=== PATIENT | female | born 1960 | race Caucasian/White ===

== ENCOUNTER 2016-11-16 10:42 | Outpatient (CLI) | payer MEDICARE, BC ==
--- NOTE | 2016-11-16 11:57 | RAD ---
CERVICAL SPINE TWO VIEWS: History: Cervical surgery seven weeks ago. Follow up. FINDINGS/IMPRESSION: There are post op changes of anterior spinal fusion with plate and screws and intrathecal prostheses at C4-5-6-7 levels in good position and alignment. Metallic hardware is intact. No fracture or subl uxation is seen. POS: [facility]
== END 2016-11-16 10:43 | disposition home or self-care (01) ==
LOC: SCSRAD 10:42
PROVIDERS: ATTEND Neurological Surgery
DX: M47.12 Other spondylosis with myelopathy, cervical region (principal); Z98.1 Arthrodesis status
CPT/HCPCS: 72040

== ENCOUNTER 2018-03-21 19:32 | Emergency (ER) | payer MEDICARE, BC ==
[2018-03-21] MEDS ORDERED: diphenhydrAMINE 50 MG/ML VIAL ONE (19:56)
[2018-03-21] MEDS ORDERED: Metoclopramide HCl 10 MG/2 ML VIAL ONE (19:56)
[2018-03-21] MEDS ORDERED: methylPREDNISolone Sod Succ/PF 125 MG/2 ML VIAL ONE (19:56)
[2018-03-21] MEDS ORDERED: Ketorolac Tromethamine 30 MG/ML VIAL ONE (19:56)
[2018-03-21] MEDS ORDERED: Water For Inject, Bacteriostat 30 ML ONE (19:57)
[2018-03-21 20:33] LABS: #Basophils 0.1 thou/uL (0.0-0.2); #Eosinphils 0.2 thou/uL (0.0-0.7); #Lymphocytes 0.6 thou/uL (1.20-3.40); #Monocytes 0.3 thou/uL (0.11-0.59); #Neutrophils 8.4 thou/uL (1.40-6.50); %Basophils 0.6 % (0.0-1.0); %Eosinophils 1.9 % (0.0-10.0); %Lymphocytes 6.4 % (21.0-51.0); %Monocytes 2.7 % (0.0-10.0); %Neutrophils 88.4 % (42.0-75.0); Hemoglobin 13.1 g/dL (12.0-16.0); Mean Corpuscular Hemoglobin 29.4 pg (27.0-31.0); Mean Corpuscular Volume 89.2 fL (78.0-98.0); Mean Platelet Volume 7.6 fL (7.4-10.4); Platelet Count 264 thou/uL (130-400); RBC Distribution Width 13.8 % (11.5-14.5); Red Blood Cell (RBC) Count 4.45 mill/uL (4.20-5.40); White Blood Cell (WBC) Count 9.5 thou/uL (4.8-10.8)
[2018-03-21 20:46] LABS: ALT (SGPT) 29 U/L (8-55); AST (SGOT) 16 U/L (5-34); Albumin 4.3 g/dL (3.5-5.0); Alkaline Phosphatase 121 U/L (40-150); Anion Gap 14 mmol/L (10-20); BUN (Urea Nitrogen) 16 mg/dL (9.8-20.1); Calc. Creatinine Clearance 0 mL/min (70-130); Calcium 9.6 mg/dL (7.8-10.44); Carbon Dioxide 26 mmol/L (22-29); Chloride 105 mmol/L (98-107); Estimated GFR-MDRD 74; Globulin 2.6 g/dL (2.4-3.5); Glucose 122 mg/dL (70-105); Lipase 24 U/L (8-78); Potassium 4.5 mmol/L (3.5-5.1); Protein, Total 6.9 g/dL (6.0-8.3); Sodium 140 mmol/L (136-145)
--- NOTE | 2018-03-21 21:43 | CT ---
CT OF ABDOMEN AND PELVIS PERFORMED WITH INTRAVENOUS CONTRAST ENHANCEMENT: 03/21/18 HISTORY: Epigastric pain. COMPARISON: None. The lung bases are clear. Liver shows suggestion of fatty change. There is a right lobe liver mass. I t measures 3 cm. It shows some peripheral enhancement. This would suggest this is most likely a heman gioma but not completely characterized on this study. The spleen, pancreas, and gallbladder regions a ll appear unremarkable. Right and left adrenal glands and right and left kidneys are normal in size. No significant periaorti c or mesenteric adenopathy. CT OF PELVIS PERFORMED WITH CONTRAST ENHANCEMENT: The appendix is normal. No evidence of adenopathy, mass, or free fluid. IMPRESSION: 1. 3 cm right lobe liver lesion, most likely a hemangioma but incompletely characterized on this examination. CT using hemangioma protocol or nuclear medicine study on a nonemergent basis would be recommended. 2. Fatty change of the liver. POS: [facility]
== END 2018-03-21 23:05 | disposition home or self-care (01) ==
LOC: SCSER 19:32
DX: R10.9 Unspecified abdominal pain (principal); M79.10 Myalgia, unspecified site; R51 Headache; F41.9 Anxiety disorder, unspecified; F32.9 Major depressive disorder, single episode, unspecified; I10 Essential (primary) hypertension; Z87.891 Personal history of nicotine dependence
CPT/HCPCS: 74177; 80053; 83690; 85025; 96365; 96366; 96375; J1200; J1885; J2765; J2930